=== PATIENT | male | born 2000 | race Caucasian/White ===

== ENCOUNTER 2021-08-02 21:49 | Emergency (ER) | payer OTHER ==
[~2021-08-02] VITALS: Ht 175.3 cm; Wt 81.7 kg
[2021-08-02] MEDS ORDERED: COMBIVIR 1501 COMBO PO (22:41)
[2021-08-02] MEDS ORDERED: CRIXIVAN400 MG PO (22:41)
[2021-08-02 22:51] VITALS: BP 142/98
[2021-08-02 23:04] LABS: HEMATOCRIT 43.5 % (39.0-50.0); IMMATURE GRANULOCYTES 0.1 % (0.0-5.0); MEAN CELL VOLUME 90.8 fL CALC (80.0-100.0); MEAN CORPUSCULAR HGB 31.3 pG CALC (26.0-32.0); MEAN CORPUSCULAR HGB CONC 34.5 g/dL CAL (32.0-36.0); NEUT# 5.4 thou/uL (1.82-7.42); RED BLOOD COUNT 4.79 mill/uL (4.70-6.10); RED CELL DISTRI WIDTH 11.1 % (11.5-15.5)
[2021-08-02 23:28] LABS: URINE BILIRUBIN - DIPSTICK NEGATIVE (NEGATIVE); URINE BLOOD DIPSTICK NEGATIVE (NEGATIVE); URINE COLOR YELLOW; URINE GLUCOSE - DIPSTICK NEGATIVE (NEGATIVE); URINE KETONE NEGATIVE (NEGATIVE); URINE LEUK ESTERASE NEGATIVE (NEGATIVE); URINE PROTEIN - DIPSTICK NEGATIVE (NEG-TRACE); URINE UROBILINOGEN - DIPSTICK 0.2 E.U./dL (0.2)
[2021-08-02 23:29] LABS: URINE NITRITE - DIPSTICK NEGATIVE (Negative)
[2021-08-02 23:34] LABS: ALBUMIN 4.5 g/dL (3.2-5.0); ALKALINE PHOSPHATASE 84 u/l (38-126); ANION GAP 14 (6-22 (CALC)); BILIRUBIN, TOTAL 0.4 mg/dL (0.0-1.4); BUN 21 mg/dL (9-20); BUN/CREATININE RATIO 19 (12-20 (CALC)); CARBON DIOXIDE 27 mmol/l (22-30); CHLORIDE 102 mmol/l (95-108); CPK 114 u/l (52-200); CREATININE 1.1 mg/dL (0.7-1.3); GFR > 60 ML/MIN (>=60 (CALC)); GFR FOR AFR.AMER. > 60 ML/MIN (>=60 (CALC)); POTASSIUM 3.7 mmol/l (3.5-5.1); SGOT/AST 27 u/l (17-59); SODIUM 139 mmol/l (137-146); TOTAL PROTEIN 7.3 g/dL (6.3-8.2)
--- NOTE | 2021-08-03 11:59 | NUR ---
Received call from Gaming Cashier from pt's insurance company [employer] concerning Crixivan rx. Per clinical case manager, Melanie, pt unable to find Crixivan at any local pharmacies. Crixivan is no longer on Post Blood and Body Fluid exposure protocol. Received verbal order from Dr Licea to change rx to Raltegravir 400 mg po bid x 7 days. Contacted pt who stated his employer is already providing him with a new rx for a medication to take the place of Crixivan. Pt declined for me to call in new rx for raltegravir at this time. I provided pt with phone number for the pharmacy department if he has any trouble obtaining the rx from his employer. Offered to provide pt with weekend doses in the ER if not able to fill rx over the weekend at a retail pharmacy. Pt verbalized understanding.
== END 2021-08-02 23:00 | disposition home or self-care (01) | DRG 605 ==
LOC: ED 21:49
PROVIDERS: Family Medicine
DX: S61.231A Puncture wound without foreign body of left index finger without damage to nail, initial encounter (principal); W46.1XXA Contact with contaminated hypodermic needle, initial encounter; Y93.F9 Activity, other caregiving; Y92.89 Other specified places as the place of occurrence of the external cause; Y99.0 Civilian activity done for income or pay

== ENCOUNTER 2022-06-30 08:35 | Emergency (ER) | payer OTHER ==
[~2022-06-30] VITALS: Ht 175.3 cm; Wt 59.1 kg
[2022-06-30] VITALS (7 sets, daily range): BP systolic 115–123; BP diastolic 76–84
[~2022-06-30 08:35] MED LIST: COMBIVIR 1501 COMBO PO; CRIXIVAN400 MG PO
[2022-06-30] MEDS ORDERED: CLINDAMYCIN300 M1 PO (10:07)
== END 2022-06-30 10:30 | disposition home or self-care (01) | DRG 159 ==
LOC: ED 08:35
DX: K08.89 Other specified disorders of teeth and supporting structures (principal); R50.9 Fever, unspecified